=== PATIENT | female | born 1990 | race Caucasian/White ===

== ENCOUNTER 2020-07-05 05:32 | Outpatient (CLI) | payer BC ==
[~2020-07-05] VITALS: Ht 170.2 cm; Wt 109.1 kg
[~2020-07-05 05:32] MED LIST: HYDR-3729 PO
[2020-07-06] MEDS ORDERED: HYDR-3817 PO ×2 (09:53)
== END 2020-07-05 10:14 | disposition home or self-care (01) ==
LOC: PREOP 05:32
PROVIDERS: ATTEND Surgery
DX: Z01.818 Encounter for other preprocedural examination (principal)

== ENCOUNTER 2020-07-06 09:29 | Day surgery (SDC) | payer BC ==
[2020-07-06] VITALS (8 sets, daily range): BP systolic 120–150; BP diastolic 77–93
[~2020-07-06] VITALS: Ht 170.2 cm; Wt 109.1 kg
[~2020-07-06 09:29] MED LIST changes: +ceFAZolin 2 GM IV Premixed 50 ML ONE
[2020-07-06] MEDS ORDERED: BUPIVACAINE 0.25% 30 ML (SENSORCAINE) VIAL ONE (09:39)
[2020-07-06] MEDS ORDERED: LIDOCAINE/EPI 1%-1:100,000 (XYLOCAINE) 20ML ONE (09:39)
[2020-07-06] MEDS ORDERED: LACTATED RINGERS 1,000 ML IV PRN (09:45)
[2020-07-06] MEDS ORDERED: ceFAZolin 2 GM IV Premixed 50 ML IV ONE (09:45)
--- NOTE | 2020-07-06 09:52 | Progress Note-Pre Operative ---
Pre-Operative Progress Note H&P Reviewed The H&P was reviewed, patient examined and no changes noted. Date Seen by Provider: Jul 06, 2020 Time Seen by Provider: 09:50 Date H&P Reviewed: Jul 06, 2020 Time H&P Reviewed: 09:45 Pre-Operative Diagnosis: Right ganglion cyst AURORA LAZAR PROPERTY VALUER Jul 06, 2020 09:51
[2020-07-06] MEDS ORDERED: HYDR-3817 PO ×2 (09:53)
--- NOTE | 2020-07-06 09:55 | Discharge Inst-Surgical ---
D/C Lap Instructions-DANIELAO Reconcile Patient Problems Problems Reviewed?: Yes New, Converted, or Re-Newed RX: RX on Chart Follow Up Appt in 2 weeks Activity as tolerated No driving for 24 hours No driving while on pain medications Incentive Spirometry use every 2 hours while awake Regular Diet Symptoms to Report: Fever over 101 degree F, Nausea/Vomiting Infection Signs and Symptoms to report: Increased redness, Foul odor of wound, Increased drainage Wear splint for 2 weeks Bathing instructions: May shower Operative Area Clean/Dry; Keep incision clean/dry If any problems/questions: Contact your physician or go to Emergency Room AURORA LAZAR APRN Jul 06, 2020 09:55
[2020-07-06] MEDS ORDERED: ONDANSETRON 4 MG/2 ML (SDV) Z0FRAN IVP PRN ×2 (10:00→13:00)
[2020-07-06] MEDS ORDERED: ACETAMINOPHEN 325 MG TABLET PO PRN (10:00)
[2020-07-06] MEDS ORDERED: morphine INJ 10 MG/ML 1ML (SYR OR VIAL) IVP PRN (10:00)
[2020-07-06] MEDS ORDERED: HYDROcodone/APAP 5 MG/325 MG (LORTAB) TAB PO ONE (10:00)
[2020-07-06] MEDS ORDERED: proPOfol 200 MG/20 ML (DIPRIVAN) VIAL IV ONE ×2 (11:34→12:07)
[2020-07-06] MEDS ORDERED: LIDOCAINE PF 2% 5 ML (XYLOCAINE) VIAL ONE (11:34)
[2020-07-06] MEDS ORDERED: MIDAZOLAM 2 MG/2 ML (VERSED) VIAL ONE ×2 (11:34→11:50)
[2020-07-06] MEDS ORDERED: KETAMINE/NaCl 50 MG/5 ML SYRINGE (ED ONLY) ONE (11:57)
--- NOTE | 2020-07-06 12:35 | Progress Note-Post Operative ---
Post-Operative Progess Note Surgeon (s)/Vehicle Safety Inspector (s) Surgeon HEAVEN SIMENTAL MD Vehicle Safety Inspector: olive lutz BALL MACHINE OPERATOR Pre-Operative Diagnosis GANGLION CYST RIGHT WRIST Post-Operative Diagnosis same Procedure & Operative Findings Date of Procedure 07/06/20 Procedure Performed/Findings right wrist ganglion cyst excision. Anesthesia Type mac with local Estimated Blood Loss Estimated blood loss (mL): minimal Specimens/Packing Specimens Removed ganglion cyst HEAVEN SIMENTAL MD Jul 06, 2020 12:35
[2020-07-06] MEDS ORDERED: morphine INJ 10 MG/ML 1ML (SYR OR VIAL) IVP ONE (13:00)
--- NOTE | 2020-07-06 13:06 | Anesthesia-General Post-Op ---
MAC Patient Condition Mental Status/LOC: Same as Preop Cardiovascular: Satisfactory Nausea/Vomiting: Absent Respiratory: Satisfactory Pain: Controlled Complications: Absent Post Op Complications Complications None Follow Up Care/Instructions Patient Instructions None needed. Anesthesiology Discharge Order Discharge Order Patient is doing well, no complaints, stable vital signs, no apparent adverse anesthesia problems. SAMANTHA HENDRICKS DO Jul 06, 2020 13:06
--- NOTE | 2020-07-06 16:23 | OPERATIVE REPORT ---
DATE OF SERVICE: 07/06/2020 PREOPERATIVE DIAGNOSIS: Symptomatic right wrist ganglion cyst. POSTOPERATIVE DIAGNOSIS: Symptomatic right wrist ganglion cyst. PROCEDURE: Excision of right wrist ganglion cyst. SURGEON: Heaven Simental MD LETTER OF CREDIT DOCUMENT EXAMINER: Everette Burris APRN. ANESTHESIA: Monitored anesthesia care with local. ESTIMATED BLOOD LOSS: Minimal. FINDINGS: Small ganglion cyst along the extensor surface between the distal aspect in between the radius and ulna. DISPOSITION: The patient tolerated the procedure well. INDICATIONS: The patient is a 29-year-old female known to us. She was seen in 2014 for a benign ganglion cyst along the extensor surface of the left wrist, which was excised on 08/18/2014. She reports that she has a similar lesion along the extensor surface of the right wrist for the past two years; however, has grown larger in size and become more painful. 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 Upon examination, she was again found to have a small lesion along the extensor surface of the right wrist, especially upon flexion consistent with a benign ganglion cyst. DESCRIPTION OF PROCEDURE: The patient was brought to the operating room, laid supine on the table. After adequate IV pain and sedative medications and monitored anesthesia care, the right upper extremity was prepped and draped in standard surgical fashion. The hand was flexed and the lesion identified. The overlying skin was then anesthetized using 1% lidocaine with epinephrine. The skin was then opened vertically using a 15 blade and the subcutaneous tissue dissected down using electrocautery. The fascia was then identified and opened using electrocautery. The extensor tendons identified and in between the distal aspect of the radius and ulna was a small encapsulated cyst just underneath one of the extensor tendons consistent with a benign ganglion cyst. This was then dissected out using electrocautery as well as sharp dissecting scissors to the base of the cyst. The base of the cyst was then sutured with an 0 chromic loop suture. The ganglion cyst was then fully excised under direct visualization using electrocautery. Good hemostasis was observed and the subcutaneous tissue was then reapproximated using 3-0 Vicryl interrupted sutures. Skin was closed using 4-0 Monocryl running subcuticular suture. Wound was then cleaned and covered with Dermabond. The wrist was then covered with Randi wrap followed by a 1-inch Ervin wrap from the mid hand to above the wrist followed by an immobilizing removable wrist splint. The patient tolerated the procedure well. She will be instructed to keep the area clean and dry. However, do all of her normal activities of daily living and to keep the splint on as much as possible for the next two weeks to allow for greater immobilization and allow time for healing. We will recommend no heavy lifting or exertion for the next six weeks as well. Job ID: [id number] DocumentID: [id number] Dictated Date: 07/06/2020 12:31:40 Compounder Helper Date: 07/06/2020 16:22:59 Dictated By: HEAVEN SIMENTAL MD
== END 2020-07-06 14:05 | disposition home or self-care (01) ==
LOC: SDC 09:29
PROVIDERS: ATTEND Surgery
DX: M67.431 Ganglion, right wrist (principal); Z82.49 Family history of ischemic heart disease and other diseases of the circulatory system
CPT/HCPCS: 84703; 87081; 88304